=== PATIENT | female | born 2000 | race Hispanic/Latino ===

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

== ENCOUNTER 2022-12-01 09:02 | Emergency (ER) | payer OTHER, MEDICAID ==
[2022-12-01] MEDS ORDERED: Ondansetron PF 4 MG/2 ML Vial ONE (09:25)
[2022-12-01] MEDS ORDERED: Morphine 4 MG/ML VIAL ONE (09:40)
[2022-12-01 09:41] LABS: #Basophils 0.1 thou/uL (0.0-0.2); #Eosinphils 0.3 thou/uL (0.0-0.7); #Monocytes 0.1 thou/uL (0.11-0.59); #Neutrophils 7.1 thou/uL (1.40-6.50); %Basophils 0.9 % (0.0-1.0); %Eosinophils 3.6 % (0.0-10.0); %Monocytes 1.5 % (0.0-10.0); %Neutrophils 75.7 % (42.0-75.0); Hematocrit 39.6 % (36.0-47.0); Hemoglobin 13.2 g/dL (12.0-16.0); Mean Corpuscular HGB CONC 33.3 g/dL (32.0-36.0); Mean Corpuscular Hemoglobin 29.3 pg (27.0-31.0); Mean Corpuscular Volume 87.8 fl (78.0-98.0); Mean Platelet Volume 9.8 fL (7.4-10.4); Platelet Count 292 10x3/uL (130-400); RBC Distribution Width 12.8 % (11.5-14.5); Red Blood Cell (RBC) Count 4.51 mill/uL (4.20-5.40); White Blood Cell (WBC) Count 9.4 10x3/uL (4.8-10.8)
[2022-12-01 10:07] LABS: BHCG - Serum Negative (NEGATIVE); Pregs Control Background? CLEAR/WHITE (CLR/WHITE); Pregs Control Bar Appear? YES (CONTROL BAR)
[2022-12-01 10:09] LABS: ALT (SGPT) 19 U/L (8-55); AST (SGOT) 20 U/L (5-34); Albumin 4.2 g/dL (3.5-5.0); Alkaline Phosphatase 72 U/L (40-110); Anion Gap 14 mmol/L (10-20); BUN (Urea Nitrogen) 12 mg/dL (7.0-18.7); Bilirubin, Total 0.4 mg/dL (0.2-1.2); Calc. Creatinine Clearance 0 mL/min (70-130); Calcium 9.5 mg/dL (7.8-10.44); Carbon Dioxide 19 mmol/L (22-29); Chloride 106 mmol/L (98-107); Estimated GFR 107; Globulin 3.2 g/dL (2.4-3.5); Glucose 107 mg/dL (70-105); Lipase 32 U/L (8-78); Potassium 3.4 mmol/L (3.5-5.1); Protein, Total 7.4 g/dL (6.0-8.3); Sodium 136 mmol/L (136-145)
[2022-12-01] MEDS ORDERED: Pantoprazole 40 MG VIAL ONE (10:34)
[2022-12-01] MEDS ORDERED: Ketorolac Tromethamine 30 MG/ML VIAL ONE (10:34)
[2022-12-01] MEDS ORDERED: Sucralfate 1 GM/10 ML UDCUP ONE (10:34)
== END 2022-12-01 11:00 | disposition home or self-care (01) ==
LOC: ERS 09:02
DX: K29.70 Gastritis, unspecified, without bleeding (principal)
CPT/HCPCS: 76705; 80053; 83605; 83690; 84703; 85025; 96361; 96374; 96375; C9113; J1885; J2270; J2405